=== PATIENT | male | born 1975 | race African-American/Black ===

== ENCOUNTER 2019-02-02 09:56 | Emergency (ER) | payer MEDICAID ==
[~2019-02-02] VITALS: Ht 175.3 cm; Wt 77.1 kg
[~2019-02-02 09:56] MED LIST: UNKNOWN MED
--- NOTE | 2019-02-02 10:00 | NUR ---
ED Nurse Note: Patient brought in by ambulance from home c/o back pain, patient states he was opening the window this morning and back pain started 10/ patient states "it feels like somebody's hitting me with a hammer" patient reports history of backpain. patient is alert awake x4.
--- NOTE | 2019-02-02 10:09 | Emergency Room Report ---
History of Present Illness General Chief Complaint: Lower Back Pain or Injury Source: Patient Present Illness HPI The patient was reaching up to open a window. He twisted his back. He started feeling immediate back spasms. There was severe. Transported by EMS. He has chronic back problems. He denies any recent trauma, fevers, blood thinners, IV drug use or oncologic problems. He denies perineal numbness and incontinence. He rates the pain 10/10 and feels it spasms. It slightly more on the left-hand side. Is worse when he moves about. He is been worked up in the past with x- rays which she states were normal. He denies dysuria. He has chronic back pain and takes Motrin and baclofen. The pain today is more severe than his usual lumbar pain. He denies sciatica. No chest pain, palpitations, nausea, vomiting, diarrhea, abdominal pain, shortness of breath, depression, visual changes, headache. Allergies: Coded Allergies: No Known Allergies (Unverified , 02/02/19) UNABLE TO ASSESS (Unverified , 07/09/12) PT IS ALTERED. Patient History Past Medical History: see triage record Social History: Reports: alcohol use - In the past, drug use - THC; Denies: smoking Social History Narrative From home Reviewed Nursing Documentation: PMH: Agreed; PSxH: Agreed Nursing Documentation-PMH Past Medical History: No Stated History Review of Systems All Other Systems: negative except mentioned in HPI Physical Exam Vital Signs Date Time Temp Pulse Resp B/P (MAP) Pulse Ox O2 Delivery O2 Flow Rate FiO2 02/02/19 09:52 97.5 59 20 140/77 100 Room Air Sp02 EP Interpretation: reviewed, normal General Appearance: GCS 15, mild distress Head: normocephalic, atraumatic Eyes: bilateral eye normal inspection, bilateral eye PERRL, bilateral eye EOMI ENT: hearing grossly normal, normal voice, moist mucus membranes Neck: full range of motion, supple Respiratory: chest non-tender, lungs clear, normal breath sounds, no respiratory distress, speaking full sentences Cardiovascular #1: regular rate, rhythm, no edema Cardiovascular #2: 2+ radial (L), 2+ dorsalis pedis (R), 2+ dorsalis pedis (L) Gastrointestinal: normal inspection, normal bowel sounds, scaphoid Musculoskeletal: no calf tenderness, other - Straight leg raise without sciatic or increased pain down leg. Some increased pain with lifting right leg in the left lower back. Neurologic: alert, motor strength/tone normal, DTRs symmetric, sensory intact, speech normal Psychiatric: mood/affect normal Skin: no rash Medical Decision Making Diagnostic Impression: Primary Impression: Low back pain Qualified Codes: M54.5 - Low back pain ER Course Patient presents with severe back spasms and pain after opening a window and twisting his back. There are no red flag symptoms and imaging is not indicated at this time. Differential includes lumbar strain, muscle spasm, disc herniation, UTI amongst others. The patient will be treated with a shot of Toradol and Soma. Patient's exam is most consistent with strain and muscle spasm. After treatment the patient is ambulatory and smiling with relief in the pain. Discussed treatment plan with physical therapy. Patient is stable for outpatient observation and treatment Laboratory Tests Test 02/02/19 10:21 02/02/19 10:32 Serum Alcohol < 3 mg/dL Urine Color Pale yellow Urine Appearance Clear Urine pH 6 (4.5-8.0) Urine Specific [place] 1.015 (1.005-1.035) Urine Protein Negative (NEGATIVE) Urine Glucose (UA) Negative (NEGATIVE) Urine Ketones Negative (NEGATIVE) Urine Blood Negative (NEGATIVE) Urine Nitrite Negative (NEGATIVE) Urine Bilirubin Negative (NEGATIVE) Urine Urobilinogen Normal MG/DL (0.0-1.0) Urine Leukocyte Esterase Negative (NEGATIVE) Urine Opiates Screen Negative (NEGATIVE) Urine Barbiturates Screen Negative (NEGATIVE) Phencyclidine (PCP) Screen Negative (NEGATIVE) Urine Amphetamines Screen Negative (NEGATIVE) Urine Benzodiazepines Screen Negative (NEGATIVE) Urine Cocaine Screen Negative (NEGATIVE) Urine Marijuana (THC) Screen Positive (NEGATIVE) H Last Vital Signs Date Time Temp Pulse Resp B/P (MAP) Pulse Ox O2 Delivery O2 Flow Rate FiO2 02/02/19 12:24 97.5 62 16 132/71 99 Room Air Status: improved Disposition: HOME, SELF-CARE Condition: Improved Scripts Hydrocodone Bit/Acetaminophen 5-325* (NORCO 5-325*) 1 Each Tablet 1 TAB ORAL Q6H PRN for For Pain, #4 TAB 0 Refills Prov: Dirk Gates MD 02/02/19 Dirk Gates MD Feb 02, 2019 10:09
[2019-02-02] MEDS ORDERED: Ketorolac 60mg Inj IM ONE (10:15)
--- NOTE | 2019-02-02 10:35 | NUR ---
ED Nurse Note: blood /urine sent to lab
[2019-02-02 10:37] LABS: APPEARANCE,URINE CLEAR; BILIRUBIN, URINE NEGATIVE (NEGATIVE); COLOR,URINE PALE YELLOW; GLUCOSE, URINE (UA) NEGATIVE (NEGATIVE); KETONES,URINE NEGATIVE (NEGATIVE); LEUKOCYTE ESTERASE ,URINE NEGATIVE (NEGATIVE); NITRITE,URINE NEGATIVE (NEGATIVE); PH,URINE 6 (4.5-8.0); PROTEIN,URINE NEGATIVE (NEGATIVE); UROBILINOGEN,URINE NORMAL MG/DL (0.0-1.0)
[2019-02-02 10:48] VITALS: BP 135/72
[2019-02-02] MEDS ORDERED: NORCO 5-325 TA1 EACH ORAL (12:06)
[2019-02-02 12:11] VITALS: BP 132/71
[2019-02-02 12:24] VITALS: BP 132/71
--- NOTE | 2019-02-02 12:24 | NUR ---
ER DISCHARGE NOTE: Patient is cleared to be discharged per ERMD, pt is aox4, on room air, with stable vital signs. pt was given dc and prescription instructions, pt was able to verbalize understanding, pt id band removed without complications. pt is able to ambulate with steady gait. pt took all belongings.
== END 2019-02-02 12:24 | disposition home or self-care (01) ==
LOC: EDBD 09:56 → EMR 10:25
DX: M54.5 Low back pain (principal); G89.29 Other chronic pain
CPT/HCPCS: 36415; 80307; 80329; 81003; 96372; 99283